=== PATIENT | female | born 1980 | race Caucasian/White ===

== ENCOUNTER 2017-01-06 11:14 | Emergency (ER) | payer BC, OTHER | END 2017-01-06 12:40 | disposition home or self-care (01) | LOC: ER1 11:14 | DX: G43.709 Chronic migraine without aura, not intractable, without status migrainosus (principal); J34.89 Other specified disorders of nose and nasal sinuses; F17.210 Nicotine dependence, cigarettes, uncomplicated; Z88.5 Allergy status to narcotic agent | CPT/HCPCS: 96361; 96374; 96375; 99283; J1200; J1885; J2765; J7030 ==

== ENCOUNTER → 2020-09-22 | Outpatient (CLI) | payer OTHER ==
[~2020-09-22] MED LIST: CIPRO500 MG PO; DELSYM30 MG/5 ML PO; EXPECTORANT200 MG PO; PHENERGAN 12.12.5 M1 PO
== END ==
LOC: EXRD 15:16
DX: R59.1 Generalized enlarged lymph nodes (principal)
CPT/HCPCS: 76536

== ENCOUNTER → 2021-03-01 | Outpatient (CLI) | payer OTHER | LOC: KOH-I 12:05 | DX: R10.13 Epigastric pain (principal) | CPT/HCPCS: 74018 ==